=== PATIENT | male | born 1990 | race Hispanic/Latino ===

== ENCOUNTER 2018-10-29 20:36 | Emergency (ER) | payer BC ==
[2018-10-29 20:55] VITALS: BMI 24.3
[2018-10-29] MEDS ORDERED: Piperacillin/Tazobact 3.375 GM in Sodium Chloride 0.9% 100 ML IV STA (21:45)
[2018-10-29] MEDS ORDERED: Vancomycin 1 g Inj ONE (22:05)
[2018-10-29] MEDS ORDERED: Piperacillin/Tazobact 3.375 gm Inj IVPB ONE (22:05)
[2018-10-29 22:11] LABS: BASO % 0.7 % (0.0-2.0); EOS # 0.4 K/uL (0.0-0.7); EOS % 7.2 % (0.0-4.0); HEMOGLOBIN 15.6 g/dL (12.0-18.0); LYMPH # 1.4 K/uL (1.0-4.3); LYMPH % 26.8 % (20.0-40.0); MEAN CELL VOLUME 88.3 fl (80.0-94.0); MEAN CORPUSCULAR HEMOGLOBIN 31.6 pg (27.0-31.0); MEAN CORPUSCULAR HGB CONC 35.8 g/dL (33.0-37.0); MEAN PLATELET VOLUME 8.2 fl (7.2-11.7); MONO # 0.3 K/uL (0.0-0.8); NEUT % 59.3 % (50.0-75.0); NRBC % 0.1 % (0.0-0.0); RBC 4.93 Mil/uL (4.40-5.90); RED CELL DISTRIBUTION WIDTH 14.2 % (11.5-14.5)
[2018-10-29 22:16] LABS: ALB/GLOB RATIO 1.5 (1.0-2.1); ALBUMIN 3.9 g/dL (3.5-5.0); BLOOD UREA NITROGEN 11 mg/dl (9-20); CALCIUM 9.1 mg/dL (8.4-10.2); GFR NON-AFRICAN AMERICAN > 60
--- NOTE | 2018-10-29 22:28 | ED PDOC ---
Lower Extremity Pain/Injury Time Seen by Provider: 10/29/18 21:19 Chief Complaint (Nursing): Lower Extremity Problem/Injury Chief Complaint (Provider): Left Leg Swelling History Per: Patient History/Exam Limitations: no limitations Onset/Duration Of Symptoms: Days (x4) Current Symptoms Are (Timing): Still Present Additional Complaint(s): 28 year old male with pmhx of type 1 diabetes presents to the ED for evaluation of left leg swelling. Patient states that four days ago he developed left medial thigh redness and swelling at the site of his glucometer. He reports he removed it and went to his PMD who started him on Keflex and marked the borders of redness. Patient states that today the redness is propagating past the borders with the lesion redder than before. Otherwise, notes that his glucose levels have been within normal range. PMD: Dr. Ventura Past Medical History Reviewed: Historical Data, Nursing Documentation, Vital Signs Vital Signs: Last Vital Signs Temp 98.7 F 10/29/18 20:55 Pulse 96 H 10/29/18 20:55 Resp 18 10/29/18 20:55 BP 123/75 10/29/18 20:55 Pulse Ox 98 10/29/18 20:55 - Medical History PMH: Diabetes (type 1) Other PMH: mild cerebral palsy; heart valve problems - Surgical History Other surgeries: aortic surgery - Family History Family History: States: Unknown Family Hx - Social History Current smoker - smoking cessation education provided: No Alcohol: Social Drugs: Denies - Home Medications Home Medications: Ambulatory Orders Medication Instructions Recorded Cetirizine HCl [Zyrtec] 5 mg PO DAILY PRN 10/30/18 Clindamycin [Cleocin] 300 mg PO TID #21 cap 10/30/18 Insulin Aspart [Novolog Flexpen] 0 dose SC DAILY 10/30/18 - Allergies Allergies/Adverse Reactions: Allergies Allergy/AdvReac Type Severity Reaction Status Date / Time No Known Allergies Allergy Verified 10/29/18 20:55 Review of Systems ROS Statement: Except As Marked, All Systems Reviewed And Found Negative Constitutional: Negative for: Fever, Chills Musculoskeletal: Positive for: Other (left leg swelling and redness) Physical Exam - Reviewed Nursing Documentation Reviewed: Yes Vital Signs Reviewed: Yes - Physical Exam Appears: Positive for: No Acute Distress Head Exam: Positive for: ATRAUMATIC, NORMOCEPHALIC Skin: Positive for: Warm, Dry Eye Exam: Positive for: Normal appearance Neck: Positive for: Normal, Painless ROM, Supple Cardiovascular/Chest: Positive for: Regular Rate, Rhythm Respiratory: Positive for: Normal Breath Sounds. Negative for: Respiratory Distress Gastrointestinal/Abdominal: Positive for: Normal Exam, Soft. Negative for: Tenderness Back: Positive for: Normal Inspection Extremity: Positive for: Other (8x10cm cellulitic, erythematous, warm lesion with central vesicle to left medial thigh; borders were marked for cellulitic lesion, erythema and induration now extends past ED marked borders from three days ago) Neurological/Psych: Positive for: Awake, Alert, Oriented (x3) - Laboratory Results Result Diagrams: 10/29/18 21:50 10/29/18 21:50 Lab Results: Total Bilirubin 1.9 mg/dl (0.2-1.3) H 10/29/18 21:50 Total Protein 6.5 G/DL (6.3-8.2) 10/29/18 21:50 Albumin 3.9 g/dL (3.5-5.0) 10/29/18 21:50 Globulin 2.6 gm/dL (2.2-3.9) 10/29/18 21:50 Albumin/Globulin Ratio 1.5 (1.0-2.1) 10/29/18 21:50 - ECG O2 Sat by Pulse Oximetry: 98 (RA) Pulse Ox Interpretation: Normal Medical Decision Making Medical Decision Making: Time: 2146 Initial Impression: 28 year old male with cellulitic lesion to left medial thigh in setting of known diabetes and failed outpatient treatment Initial Plan: --CMP --Lact acid --CBC with differential --Vancomycin 1gm in NS 250ml IVPB --Blood culture --Accucheck --Reevaluation Time: 2146 --Patient's labs show no clinical abnormalities. --Patient has failed outpatient treatment and underlying diabetes and will admit for further IV antibiotic treatment. --Case has been referred to Dr. Camarena, Hospitalist. --Diagnosis: Cellulitis of the left medial thigh. Scribe Attestation: Documented by Olivia Paredes, acting as a scribe for Slade Marin MD. Provider Scribe Attestation: All medical record entries made by the Scribe were at my direction and personally dictated by me. I have reviewed the chart and agree that the record accurately reflects my personal performance of the history, physical exam, medi ivette decision making, and the department course for this patient. I have also personally directed, reviewed, and agree with the discharge instructions and disposition. Disposition - Clinical Impression Clinical Impression: Cellulitis of lower extremity - Patient ED Disposition Is Patient to be Admitted: Yes - Disposition Disposition Time: 00:01 Condition: FAIR - POA Present On Arrival: Poor Glycemic Control
[2018-10-29 22:43] LABS: ALT/SGPT 34 U/L (21-72); AST/SGOT 46 U/L (17-59)
[2018-10-30] MEDS ORDERED: Dextrose 50% SYRINGE Inj (50 ml) IV PRN (01:40)
[2018-10-30] MEDS ORDERED: Glucagon Recombinant 1 mg Inj IM PRN (01:40)
--- NOTE | 2018-10-30 01:41 | CP.PCM.HP ---
<Flavia Sams - Last Filed: 10/30/18 02:00> History of Present Illness - History of Present Illness History of Present Illness: This is 28 y/o M with PMH of congenital heart defects, mild cerebral palsy, IDDM-I on insulin pump admitted to [facility] for evaluation and treatment of left medial thigh Cellulitis. As per patient he is wearing insulin pump to his left medial thigh and skin got infected. Patient noticed progressively worsening skin erythema and pain 4 days ago which prompted him to go to PMD. Patient was started of Keflex BID, 3/10 days, reports mild improvement in rash today. Repo rts pain at infected medial thigh with walking, denies any discharge. Denies any fever, chills, n/v, SOB, dizziness, chest pain, abdominal/groin pain or weakness. PMH: congenital heart defects, mild cerebral palsy, IDDM-I on insulin pump PSH: PDA repaired/congenital heart defects repaired Allg: NKDA SH: Patient takes care of his insulin pump, denies smoking/alcohol or drug use FH: Denies ROS: As per HPI ER Course: VS: Afebrile, HR 96, stable BP and spo2 CBC and CMP: no significant findings, only BS 200+ Bcx Vanco and Zosyn x1 dose Present on Admission - Present on Admission Any Indicators Present on Admission: No Review of Systems - Constitutional Constitutional: absent: Daytime Sleepiness, Excessive Sweating - EENT Eyes: absent: Blurred Vision Ears: absent: Ear Discharge, Ear Pain, Dizziness Nose/Mouth/Throat: absent: Nasal Congestion - Cardiovascular Cardiovascular: absent: Chest Pain - Respiratory Respiratory: absent: Cough, Dyspnea, Hemoptysis - Gastrointestinal Gastrointestinal: absent: Abdominal Pain, Bloating, Nausea, Vomiting - Genitourinary Genitourinary: absent: Change in Urinary Stream, Dysuria - Musculoskeletal Musculoskeletal: absent: Back Pain - Integumentary Integumentary: Rash (Left thigh ). absent: Bleeding Lesions - Neurological Neurological: absent: Abnormal Gait, Dizziness, Focal Weakness, Sensory Deficit, Tingling, Tremor, Vertigo, Weakness - Psychiatric Psychiatric: absent: Anxiety Past Patient History - Past Social History Alcohol: Social Drugs: Denies - CARDIAC Hx Cardiac Disorders: Yes Other/Comment: heart valve problems - NEUROLOGICAL Other/Comment: cp - ENDOCRINE/METABOLIC Hx Diabetes Mellitus Type 1: Yes - GASTROINTESTINAL Other/Comment: liver calcification - PSYCHIATRIC Hx Substance Use: No - SURGICAL HISTORY Other/Comment: heart surgery - ANESTHESIA Hx Anesthesia: Yes Meds Allergies/Adverse Reactions: Allergies Allergy/AdvReac Type Severity Reaction Status Date / Time No Known Allergies Allergy Verified 10/29/18 20:55 Physical Exam - Constitutional Appears: No Acute Distress - Head Exam Head Exam: ATRAUMATIC, NORMAL INSPECTION, NORMOCEPHALIC - Eye Exam Eye Exam: EOMI, Normal appearance, PERRL Pupil Exam: NORMAL ACCOMODATION, PERRL - ENT Exam ENT Exam: Mucous Membranes Moist - Neck Exam Neck exam: Positive for: Normal Inspection - Respiratory Exam Respiratory Exam: Clear to Auscultation Bilateral, NORMAL BREATHING PATTERN. absent: Wheezes - Cardiovascular Exam Cardiovascular Exam: REGULAR RHYTHM, +S1, +S2 - GI/Abdominal Exam GI & Abdominal Exam: Normal Bowel Sounds, Soft. absent: Tenderness - Extremities Exam Extremities exam: Positive for: normal capillary refill, pedal pulses present. Negative for: calf tenderness, joint swelling, tenderness Additional comments: Left medial thigh right above the knee, 8x10cm cellulitic, erythematous, warm lesion with central vesicle, nontender. - Back Exam Back exam: NORMAL INSPECTION. absent: CVA tenderness (L), CVA tenderness (R) - Neurological Exam Neurological exam: Alert, CN II-XII Intact, Oriented x3 - Psychiatric Exam Psychiatric exam: Normal Affect, Normal Mood - Skin Additional comments: Left medial thigh right above the knee, 8x10cm cellulitic, erythematous, warm lesion with central vesicle, nontender. Results - Vital Signs Recent Vital Signs: Last Vital Signs Temp 98.7 F 10/29/18 20:55 Pulse 96 H 10/29/18 20:55 Resp 18 10/29/18 20:55 BP 123/75 10/29/18 20:55 Pulse Ox 98 10/30/18 00:08 - Labs Result Diagrams: 10/29/18 21:50 10/29/18 21:50 Labs: Laboratory Results - last 24 hr 10/29/18 10/29/18 10/29/18 21:50 21:50 21:50 WBC 5.0 RBC 4.93 Hgb 15.6 Hct 43.5 MCV 88.3 MCH 31.6 H MCHC 35.8 RDW 14.2 Plt Count 115 L MPV 8.2 Neut % (Auto) 59.3 Lymph % (Auto) 26.8 [place] % (Auto) 6.0 Eos % (Auto) 7.2 H Baso % (Auto) 0.7 Neut # (Auto) 3.0 Lymph # (Auto) 1.4 [place] # (Auto) 0.3 Eos # (Auto) 0.4 Baso # (Auto) 0.0 Sodium 134 Potassium 4.0 Chloride 101 Carbon Dioxide 25 Anion Gap 12 BUN 11 Creatinine 0.7 L Est GFR ( Amer) > 60 Est GFR (Non-Af Amer) > 60 POC Glucose (mg/dL) Random Glucose 237 H Lactic Acid 1.1 Calcium 9.1 Total Bilirubin 1.9 H AST 46 ALT 34 Alkaline Phosphatase 97 Total Protein 6.5 Albumin 3.9 Globulin 2.6 Albumin/Globulin Ratio 1.5 10/29/18 22:53 WBC RBC Hgb Hct MCV MCH MCHC RDW Plt Count MPV Neut % (Auto) Lymph % (Auto) [place] % (Auto) Eos % (Auto) Baso % (Auto) Neut # (Auto) Lymph # (Auto) [place] # (Auto) Eos # (Auto) Baso # (Auto) Sodium Potassium Chloride Carbon Dioxide Anion Gap BUN Creatinine Est GFR ( Amer) Est GFR (Non-Af Amer) POC Glucose (mg/dL) 227 H Random Glucose Lactic Acid Calcium Total Bilirubin AST ALT Alkaline Phosphatase Total Protein Albumin Globulin Albumin/Globulin Ratio Assessment & Plan - Assessment and Plan (Free Text) Assessment: A/P: 28 y/o M with PMH of congenital heart defects, mild cerebral palsy, IDDM-I on insulin pump admitted to [facility] for evaluation and treatment of left medial thigh Cellulitis. Left Medial Thigh Cellulitis - S/p Vanco and Zosyn in ER - HD stable and no wbcs - START on VANCO 1gm Q12H - F/u Bcx - Monitor rash and progression/Patient has the picture of his rash to compare IDDM-I, Chronic - Controlled - C/w Insulin pump as per patient - Sliding scale/Hypoglycemic protocol - AccuChecks ACHS DVT PPX - SCD/Ambulatory Case discussed and patient seen with Dr. Camarena <Darwin Camarena - Last Filed: 10/30/18 10:40> Results - Vital Signs Recent Vital Signs: Last Vital Signs Temp 98.7 F 10/30/18 08:19 Pulse 83 10/30/18 08:19 Resp 17 10/30/18 08:19 BP 101/63 10/30/18 08:19 Pulse Ox 97 10/30/18 08:19 - Labs Result Diagrams: 10/29/18 21:50 10/29/18 21:50 Labs: Laboratory Results - last 24 hr 10/29/18 10/29/18 10/29/18 21:50 21:50 21:50 WBC 5.0 RBC 4.93 Hgb 15.6 Hct 43.5 MCV 88.3 MCH 31.6 H MCHC 35.8 RDW 14.2 Plt Count 115 L MPV 8.2 Neut % (Auto) 59.3 Lymph % (Auto) 26.8 [place] % (Auto) 6.0 Eos % (Auto) 7.2 H Baso % (Auto) 0.7 Neut # (Auto) 3.0 Lymph # (Auto) 1.4 [place] # (Auto) 0.3 Eos # (Auto) 0.4 Baso # (Auto) 0.0 Sodium 134 Potassium 4.0 Chloride 101 Carbon Dioxide 25 Anion Gap 12 BUN 11 Creatinine 0.7 L Est GFR ( Amer) > 60 Est GFR (Non-Af Amer) > 60 POC Glucose (mg/dL) Random Glucose 237 H Lactic Acid 1.1 Calcium 9.1 Total Bilirubin 1.9 H AST 46 ALT 34 Alkaline Phosphatase 97 Total Protein 6.5 Albumin 3.9 Globulin 2.6 Albumin/Globulin Ratio 1.5 10/29/18 10/30/18 10/30/18 22:53 03:05 08:08 WBC RBC Hgb Hct MCV MCH MCHC RDW Plt Count MPV Neut % (Auto) Lymph % (Auto) [place] % (Auto) Eos % (Auto) Baso % (Auto) Neut # (Auto) Lymph # (Auto) [place] # (Auto) Eos # (Auto) Baso # (Auto) Sodium Potassium Chloride Carbon Dioxide Anion Gap BUN Creatinine Est GFR ( Amer) Est GFR (Non-Af Amer) POC Glucose (mg/dL) 227 H 218 H 272 H Random Glucose Lactic Acid Calcium Total Bilirubin AST ALT Alkaline Phosphatase Total Protein Albumin Globulin Albumin/Globulin Ratio Attending/Attestation - Attestation I have personally seen and examined this patient.: Yes I have fully participated in the care of the patient.: Yes I have reviewed all pertinent clinical information: Yes Notes (Text): 10/30/18 10:27 I saw, examined and discussed this patient with Dr Sams. I agree with the assessment and plan outlined which represent my direct input. This ia 28 years old male with hx of IDDm on Insulin pump who comes with a cellulitis at the left thigh which failed outpatient management. We will treat with vancomycin while awaiting Blood and swab culture . Continue treatment for Diabetes Mellitus with patient using his Insulin pump. Darwin Camarena MD
[2018-10-30] MEDS ORDERED: Insulin Lispro (humaLOG) 100 Units/ml Inj SC SCH (07:30)
[2018-10-30] MEDS ORDERED: Vancomycin 1 g Inj ONE (08:58)
[2018-10-30] MEDS ORDERED: INSULIN ASPART SC SCH ×2 (09:00→13:15)
--- NOTE | 2018-10-30 11:45 | CP.PCM.DIS ---
Provider - Provider Date of Admission: 10/29/18 23:34 Attending physician: Darwin Camarena Consults: 10/30/18 11:40 Surgery [General Surgery Consult] Stat Comment: Consulting Provider: Khai Acosta Consulting Physician: Khai Acosta Reason for Consult: left thigh abscess Hospital Course - Lab Results Lab Results: Most Recent Lab Values WBC 5.0 K/uL (4.8-10.8) 10/29/18 21:50 RBC 4.93 Mil/uL (4.40-5.90) 10/29/18 21:50 Hgb 15.6 g/dL (12.0-18.0) 10/29/18 21:50 Hct 43.5 % (35.0-51.0) 10/29/18 21:50 MCV 88.3 fl (80.0-94.0) 10/29/18 21:50 MCH 31.6 pg (27.0-31.0) H 10/29/18 21:50 MCHC 35.8 g/dL (33.0-37.0) 10/29/18 21:50 RDW 14.2 % (11.5-14.5) 10/29/18 21:50 Plt Count 115 K/uL (130-400) L 10/29/18 21:50 MPV 8.2 fl (7.2-11.7) 10/29/18 21:50 Neut % (Auto) 59.3 % (50.0-75.0) 10/29/18 21:50 Lymph % (Auto) 26.8 % (20.0-40.0) 10/29/18 21:50 [place] % (Auto) 6.0 % (0.0-10.0) 10/29/18 21:50 Eos % (Auto) 7.2 % (0.0-4.0) H 10/29/18 21:50 Baso % (Auto) 0.7 % (0.0-2.0) 10/29/18 21:50 Neut # (Auto) 3.0 K/uL (1.8-7.0) 10/29/18 21:50 Lymph # (Auto) 1.4 K/uL (1.0-4.3) 10/29/18 21:50 [place] # (Auto) 0.3 K/uL (0.0-0.8) 10/29/18 21:50 Eos # (Auto) 0.4 K/uL (0.0-0.7) 10/29/18 21:50 Baso # (Auto) 0.0 K/uL (0.0-0.2) 10/29/18 21:50 Sodium 134 mmol/l (132-148) 10/29/18 21:50 Potassium 4.0 MMOL/L (3.6-5.0) 10/29/18 21:50 Chloride 101 mmol/L (98-107) 10/29/18 21:50 Carbon Dioxide 25 mmol/L (22-30) 10/29/18 21:50 Anion Gap 12 (10-20) 10/29/18 21:50 BUN 11 mg/dl (9-20) 10/29/18 21:50 Creatinine 0.7 mg/dl (0.8-1.5) L 10/29/18 21:50 Est GFR ( Amer) > 60 10/29/18 21:50 Est GFR (Non-Af Amer) > 60 10/29/18 21:50 POC Glucose (mg/dL) 272 mg/dL (65-110) H 10/30/18 08:08 Random Glucose 237 mg/dL (75-110) H 10/29/18 21:50 Lactic Acid 1.1 mmol/L (0.7-2.1) 10/29/18 21:50 Calcium 9.1 mg/dL (8.4-10.2) 10/29/18 21:50 Total Bilirubin 1.9 mg/dl (0.2-1.3) H 10/29/18 21:50 AST 46 U/L (17-59) 10/29/18 21:50 ALT 34 U/L (21-72) 10/29/18 21:50 Alkaline Phosphatase 97 U/L (38-126) 10/29/18 21:50 Total Protein 6.5 G/DL (6.3-8.2) 10/29/18 21:50 Albumin 3.9 g/dL (3.5-5.0) 10/29/18 21:50 Globulin 2.6 gm/dL (2.2-3.9) 10/29/18 21:50 Albumin/Globulin Ratio 1.5 (1.0-2.1) 10/29/18 21:50 Discharge Exam - Head Exam Head Exam: ATRAUMATIC, NORMAL INSPECTION, NORMOCEPHALIC Discharge Plan - Discharge Medications Prescriptions: Clindamycin [Cleocin] 300 mg PO TID #21 cap - Follow Up Plan Condition: GOOD Disposition: HOME/ ROUTINE Instructions: Cellulitis (GEN)
--- NOTE | 2018-10-30 12:24 | CP.PCM.CON ---
<Michael Torres - Last Filed: 10/30/18 12:19> History of Present Illness - History of Present Illness History of Present Illness: 28M with PMHx of congenital heart defect (?foramen ovale), mild cerebral palsy, IDDM-1, reported to [facility] ED for evaluation of left medical thigh cellulitis. General surgery consulted for evaluation of possible abscess formation. Patient reports noticing erythema about 4 days ago. As per patient he went to PMD who prescribed him keflex. However, patient states erythema advanced circumferentially along medial thigh which prompted him to come to ED. He denies fever/chills, chest pain, SOB, nausea/vomiting, diarrhea. PMH: congenital heart defects, mild cerebral palsy, IDDM-I on insulin pump PSH: congenital heart defects repaired Allg: NKDA FH: Denies Review of Systems - Review of Systems All systems: reviewed and no additional remarkable complaints except Review of Systems: as stated in HPI Past Patient History - Past Social History Alcohol: Social Drugs: Denies - CARDIAC Hx Cardiac Disorders: Yes Other/Comment: heart valve problems - NEUROLOGICAL Other/Comment: cp - ENDOCRINE/METABOLIC Hx Diabetes Mellitus Type 1: Yes - GASTROINTESTINAL Other/Comment: liver calcification - PSYCHIATRIC Hx Substance Use: No - SURGICAL HISTORY Other/Comment: heart surgery - ANESTHESIA Hx Anesthesia: Yes Meds Home Medications: Home Medication List Medication Instructions Recorded Confirmed Type Clindamycin [Cleocin] 300 mg PO TID #21 cap 10/30/18 Rx Allergies/Adverse Reactions: Allergies Allergy/AdvReac Type Severity Reaction Status Date / Time No Known Allergies Allergy Verified 10/29/18 20:55 - Medications Medications: Current Medications Acetaminophen (Tylenol 325mg Tab) 650 mg PO Q6 PRN PRN Reason: Fever >100.4 F Acetaminophen (Tylenol 325mg Tab) 650 mg PO Q6 PRN PRN Reason: Fever >100.4 F Dextrose (Dextrose 50% Inj) 0 ml IV STAT PRN; Protocol PRN Reason: Hypoglycemia Protocol Dextrose (Glutose 15) 0 gm PO ONCE PRN; Protocol PRN Reason: Hypoglycemia Protocol Glucagon (Glucagen Diagnostic Kit) 0 mg IM STAT PRN; Protocol PRN Reason: Hypoglycemia Protocol Home Med (Insulin Aspart [Novolog Flexpen]) 0 dose SC DAILY SOURAV Vancomycin HCl 1 gm/ Sodium (Chloride) 250 mls @ 166.667 mls/hr IVPB Q12 SOURAV; Protocol Last Admin: 10/30/18 09:07 Dose: 166.667 mls/hr Ibuprofen (Motrin Tab) 400 mg PO Q6H PRN PRN Reason: Pain, moderate (4-7) Insulin Human Lispro (Humalog) 0 units SC ACHS SOURAV; Protocol Last Admin: 10/30/18 08:13 Dose: Not Given Ondansetron HCl (Zofran Inj) 4 mg IVP Q6 PRN PRN Reason: Nausea/Vomiting Physical Exam - Constitutional Appears: No Acute Distress - Head Exam Head Exam: NORMOCEPHALIC - Eye Exam Eye Exam: EOMI, Normal appearance - ENT Exam ENT Exam: Mucous Membranes Moist - Respiratory Exam Respiratory Exam: NORMAL BREATHING PATTERN - Cardiovascular Exam Cardiovascular Exam: +S1, +S2 - GI/Abdominal Exam GI & Abdominal Exam: Soft - Neurological Exam Neurological exam: Alert, Oriented x3 - Psychiatric Exam Psychiatric exam: Normal Mood - Skin Skin Exam: Erythema, Warm Additional comments: indurated region along medial thigh no fluctuance noted no drainable collection erythema Results - Vital Signs Recent Vital Signs: Last Vital Signs Temp 97.8 F 10/30/18 11:28 Pulse 85 10/30/18 11:28 Resp 18 10/30/18 11:28 BP 109/59 L 10/30/18 11:28 Pulse Ox 97 10/30/18 11:28 - Labs Result Diagrams: 10/29/18 21:50 10/29/18 21:50 Labs: Laboratory Results - last 24 hr 10/29/18 10/29/18 10/29/18 21:50 21:50 21:50 WBC 5.0 RBC 4.93 Hgb 15.6 Hct 43.5 MCV 88.3 MCH 31.6 H MCHC 35.8 RDW 14.2 Plt Count 115 L MPV 8.2 Neut % (Auto) 59.3 Lymph % (Auto) 26.8 [place] % (Auto) 6.0 Eos % (Auto) 7.2 H Baso % (Auto) 0.7 Neut # (Auto) 3.0 Lymph # (Auto) 1.4 [place] # (Auto) 0.3 Eos # (Auto) 0.4 Baso # (Auto) 0.0 Sodium 134 Potassium 4.0 Chloride 101 Carbon Dioxide 25 Anion Gap 12 BUN 11 Creatinine 0.7 L Est GFR ( Amer) > 60 Est GFR (Non-Af Amer) > 60 POC Glucose (mg/dL) Random Glucose 237 H Lactic Acid 1.1 Calcium 9.1 Total Bilirubin 1.9 H AST 46 ALT 34 Alkaline Phosphatase 97 Total Protein 6.5 Albumin 3.9 Globulin 2.6 Albumin/Globulin Ratio 1.5 10/29/18 10/30/18 10/30/18 22:53 03:05 08:08 WBC RBC Hgb Hct MCV MCH MCHC RDW Plt Count MPV Neut % (Auto) Lymph % (Auto) [place] % (Auto) Eos % (Auto) Baso % (Auto) Neut # (Auto) Lymph # (Auto) [place] # (Auto) Eos # (Auto) Baso # (Auto) Sodium Potassium Chloride Carbon Dioxide Anion Gap BUN Creatinine Est GFR ( Amer) Est GFR (Non-Af Amer) POC Glucose (mg/dL) 227 H 218 H 272 H Random Glucose Lactic Acid Calcium Total Bilirubin AST ALT Alkaline Phosphatase Total Protein Albumin Globulin Albumin/Globulin Ratio Assessment & Plan - Assessment and Plan (Free Text) Assessment: 28M with medial thigh cellulitis Plan: No surgical intervention needed at this present time as area is indurated and not amenable to I&D Recommend warm compresses ABx as per primary D/w Dr. Dave Joyce PGY3 <Khai Acosta - Last Filed: 10/30/18 13:48> History of Present Illness - History of Present Illness History of Present Illness: Patient was seen and examined at the bedside in Emergency Department. Agree with resident's note above. Meds - Medications Medications: Current Medications Acetaminophen (Tylenol 325mg Tab) 650 mg PO Q6 PRN PRN Reason: Fever >100.4 F Acetaminophen (Tylenol 325mg Tab) 650 mg PO Q6 PRN PRN Reason: Fever >100.4 F Dextrose (Dextrose 50% Inj) 0 ml IV STAT PRN; Protocol PRN Reason: Hypoglycemia Protocol Dextrose (Glutose 15) 0 gm PO ONCE PRN; Protocol PRN Reason: Hypoglycemia Protocol Glucagon (Glucagen Diagnostic Kit) 0 mg IM STAT PRN; Protocol PRN Reason: Hypoglycemia Protocol Home Med (Insulin Aspart [Novolog Flexpen]) 0 dose SC DAILY SOURAV Vancomycin HCl 1 gm/ Sodium (Chloride) 250 mls @ 166.667 mls/hr IVPB Q12 SOURAV; Protocol Last Admin: 10/30/18 09:07 Dose: 166.667 mls/hr Ibuprofen (Motrin Tab) 400 mg PO Q6H PRN PRN Reason: Pain, moderate (4-7) Insulin Human Lispro (Humalog) 0 units SC ACHS SOURAV; Protocol Last Admin: 10/30/18 08:13 Dose: Not Given Ondansetron HCl (Zofran Inj) 4 mg IVP Q6 PRN PRN Reason: Nausea/Vomiting Results - Vital Signs Recent Vital Signs: Last Vital Signs Temp 98.0 F 10/30/18 12:53 Pulse 86 10/30/18 12:53 Resp 17 10/30/18 12:53 BP 108/73 10/30/18 12:53 Pulse Ox 98 10/30/18 12:53 - Labs Result Diagrams: 10/29/18 21:50 10/29/18 21:50 Labs: Laboratory Results - last 24 hr 10/29/18 10/29/18 10/29/18 21:50 21:50 21:50 WBC 5.0 RBC 4.93 Hgb 15.6 Hct 43.5 MCV 88.3 MCH 31.6 H MCHC 35.8 RDW 14.2 Plt Count 115 L MPV 8.2 Neut % (Auto) 59.3 Lymph % (Auto) 26.8 [place] % (Auto) 6.0 Eos % (Auto) 7.2 H Baso % (Auto) 0.7 Neut # (Auto) 3.0 Lymph # (Auto) 1.4 [place] # (Auto) 0.3 Eos # (Auto) 0.4 Baso # (Auto) 0.0 Sodium 134 Potassium 4.0 Chloride 101 Carbon Dioxide 25 Anion Gap 12 BUN 11 Creatinine 0.7 L Est GFR ( Amer) > 60 Est GFR (Non-Af Amer) > 60 POC Glucose (mg/dL) Random Glucose 237 H Lactic Acid 1.1 Calcium 9.1 Total Bilirubin 1.9 H AST 46 ALT 34 Alkaline Phosphatase 97 Total Protein 6.5 Albumin 3.9 Globulin 2.6 Albumin/Globulin Ratio 1.5 10/29/18 10/30/18 10/30/18 22:53 03:05 08:08 WBC RBC Hgb Hct MCV MCH MCHC RDW Plt Count MPV Neut % (Auto) Lymph % (Auto) [place] % (Auto) Eos % (Auto) Baso % (Auto) Neut # (Auto) Lymph # (Auto) [place] # (Auto) Eos # (Auto) Baso # (Auto) Sodium Potassium Chloride Carbon Dioxide Anion Gap BUN Creatinine Est GFR ( Amer) Est GFR (Non-Af Amer) POC Glucose (mg/dL) 227 H 218 H 272 H Random Glucose Lactic Acid Calcium Total Bilirubin AST ALT Alkaline Phosphatase Total Protein Albumin Globulin Albumin/Globulin Ratio
--- NOTE | 2018-10-30 12:29 | CP.PCM.DIS ---
Provider - Provider Date of Admission: 10/29/18 23:34 Attending physician: Darwin Camarena Consults: 10/30/18 11:40 Surgery [General Surgery Consult] Stat Comment: Consulting Provider: Khai Acosta Consulting Physician: Khai Acosta Reason for Consult: left thigh abscess Time Spent in preparation of Discharge (in minutes): 20 Hospital Course - Lab Results Lab Results: Most Recent Lab Values WBC 5.0 K/uL (4.8-10.8) 10/29/18 21:50 RBC 4.93 Mil/uL (4.40-5.90) 10/29/18 21:50 Hgb 15.6 g/dL (12.0-18.0) 10/29/18 21:50 Hct 43.5 % (35.0-51.0) 10/29/18 21:50 MCV 88.3 fl (80.0-94.0) 10/29/18 21:50 MCH 31.6 pg (27.0-31.0) H 10/29/18 21:50 MCHC 35.8 g/dL (33.0-37.0) 10/29/18 21:50 RDW 14.2 % (11.5-14.5) 10/29/18 21:50 Plt Count 115 K/uL (130-400) L 10/29/18 21:50 MPV 8.2 fl (7.2-11.7) 10/29/18 21:50 Neut % (Auto) 59.3 % (50.0-75.0) 10/29/18 21:50 Lymph % (Auto) 26.8 % (20.0-40.0) 10/29/18 21:50 [place] % (Auto) 6.0 % (0.0-10.0) 10/29/18 21:50 Eos % (Auto) 7.2 % (0.0-4.0) H 10/29/18 21:50 Baso % (Auto) 0.7 % (0.0-2.0) 10/29/18 21:50 Neut # (Auto) 3.0 K/uL (1.8-7.0) 10/29/18 21:50 Lymph # (Auto) 1.4 K/uL (1.0-4.3) 10/29/18 21:50 [place] # (Auto) 0.3 K/uL (0.0-0.8) 10/29/18 21:50 Eos # (Auto) 0.4 K/uL (0.0-0.7) 10/29/18 21:50 Baso # (Auto) 0.0 K/uL (0.0-0.2) 10/29/18 21:50 Sodium 134 mmol/l (132-148) 10/29/18 21:50 Potassium 4.0 MMOL/L (3.6-5.0) 10/29/18 21:50 Chloride 101 mmol/L (98-107) 10/29/18 21:50 Carbon Dioxide 25 mmol/L (22-30) 10/29/18 21:50 Anion Gap 12 (10-20) 10/29/18 21:50 BUN 11 mg/dl (9-20) 10/29/18 21:50 Creatinine 0.7 mg/dl (0.8-1.5) L 10/29/18 21:50 Est GFR ( Amer) > 60 10/29/18 21:50 Est GFR (Non-Af Amer) > 60 10/29/18 21:50 POC Glucose (mg/dL) 272 mg/dL (65-110) H 10/30/18 08:08 Random Glucose 237 mg/dL (75-110) H 10/29/18 21:50 Lactic Acid 1.1 mmol/L (0.7-2.1) 10/29/18 21:50 Calcium 9.1 mg/dL (8.4-10.2) 10/29/18 21:50 Total Bilirubin 1.9 mg/dl (0.2-1.3) H 10/29/18 21:50 AST 46 U/L (17-59) 10/29/18 21:50 ALT 34 U/L (21-72) 10/29/18 21:50 Alkaline Phosphatase 97 U/L (38-126) 10/29/18 21:50 Total Protein 6.5 G/DL (6.3-8.2) 10/29/18 21:50 Albumin 3.9 g/dL (3.5-5.0) 10/29/18 21:50 Globulin 2.6 gm/dL (2.2-3.9) 10/29/18 21:50 Albumin/Globulin Ratio 1.5 (1.0-2.1) 10/29/18 21:50 - Hospital Course Hospital Course: 28 y/o M with PMH of congenital heart defects, mild cerebral palsy, IDDM-I on insulin pump admitted to [facility] for evaluation and treatment of left medial thigh Cellulitis. As per patient he was wearing insulin pump to his left medial thigh and skin got infected. Patient noticed progressively worsening skin erythema and pain 4 days ago which prompted him to go to PMD. Patient was started of Keflex BID, 3/10 days and reported mild improvement . In ER found to have 10x10 erythema to left medial thigh with central punctuation , no fluctuation . He is found to have no fever , no WBC . Given Vanco and Zosyn IV in ER and area ,marked to see the affect of treatment. Surgery consulted and case discussed . As per surgery no need for I& D at this time. Clinically noted improvement to erythema size just with 1 dose of Vancomycin and Zosyn . Will discharge patient home on PO clindamycin 300 mg po TID for 1 week Counselled patient to avoid use of insulin pump in or around the infected area until cellulites has resolved . Counselled on skin prep before insulin pump and glucometer insertion each and every time. Apply warm compresses to area of cellulitis several times / day to help with healing process All findings discussed with patient and mother. All questions answered and they agree wityh discharge planning Continue use of insulin pump as prescribed by PMD Reurn to hospital if notices worsening cellulitis develops , fever , chills Dx 1.Left thigh Cellulitis with no abscess 2.IDDM type I 3.Cerebral palsy . Discharge Exam - Head Exam Head Exam: ATRAUMATIC, NORMAL INSPECTION, NORMOCEPHALIC - Eye Exam Eye Exam: EOMI, PERRL Pupil Exam: NORMAL ACCOMODATION - ENT Exam ENT Exam: Normal Exam - Neck Exam Neck exam: Full Rom - Respiratory Exam Respiratory Exam: Rhonchi, NORMAL BREATHING PATTERN. absent: Respiratory Distress - Cardiovascular Exam Cardiovascular Exam: REGULAR RHYTHM. absent: JVD - GI/Abdominal Exam GI & Abdominal Exam: Normal Bowel Sounds, Soft. absent: Guarding, Rebound, Tenderness - Rectal Exam Rectal Exam: Deferred - Extremities Exam Additional comments: left medial thigh cellulitis with induration , no fluctuation with central punctuation 4 x4 cm - Back Exam Back exam: NORMAL INSPECTION - Neurological Exam Neurological exam: Alert, CN II-XII Intact, Oriented x3 - Psychiatric Exam Psychiatric exam: Normal Affect - Skin Skin Exam: Dry, Warm Discharge Plan - Discharge Medications Prescriptions: Clindamycin [Cleocin] 300 mg PO TID #21 cap - Follow Up Plan Condition: GOOD Disposition: HOME/ ROUTINE Patient education suggested?: Yes Instructions: Cellulitis (GEN) Additional Instructions: Follow up with PMD
[2018-10-30 12:55] VITALS: BP 108/73; PULSE 86; RESP 17; TEMP 98; O2SAT 98
--- NOTE | 2018-10-31 15:05 | PQF ---
PROVIDER RESPONSE TEXT: Cellulitis to left thigh is related with use of insulin pump to the area REVIEWER QUERY TEXT: Cause and Effect Relationship Please clarify in documentation the relationship, if any, between the dx. of Cellulitus and the Insu andreas Pump versus No correlation to the Pump Such as: -- Conditions are due to or associated -- Unrelated to each other -- Other, please specify H and P includes: admitted to [facility] for evaluation and treatment of left medial thigh Cellulitis HPI : per patient he is wearing insulin pump to his left medial thigh and skin got infected. Patient noticed progressively worsening skin erythema and pain 4 days ago which prompted him to go to PMD. Toney aleman was started of Keflex BID, 3/10 days, reports mild improvement in rash today. Reports pain at i nfected medial thigh with walking. Impression includes: Medial Thigh Cellulitis - S/p Vanco and Zosyn in ER - F/u Bcx - Monitor rash and progression/Patient has the picture of his rash to compare Surgery: Counselled patient to avoid use of insulin pump in or around the infected area until celluli sergei has resolved .Counselled on skin prep before insulin pump and glucometer insertion each and every time. .Apply warm compresses to area of cellulitis several times / day to help with healing process 1.Left thigh Cellulitis with no abscess 2.IDDM type I 3.Cerebral palsy The patient's Clinical Indicators include: -- Query created by: Bhavana Foster on 10/30/2018 2:26 PM Electronically signed by: Chelo Gaytan 10/31/2018 3:01 PM
== END 2018-10-30 13:04 | disposition home or self-care (01) ==
LOC: H.ER 20:36 → H.ERHOLD 23:34 → UNDOADMIN 23:34 → UNDODISIN 10-30 13:04
DX: L03.116 Cellulitis of left lower limb (principal); E11.9 Type 2 diabetes mellitus without complications
CPT/HCPCS: 80053; 82948; 83605; 85025; 87040; 96360; 96365; 96366; 99285; J2543